=== PATIENT | female | born 1955 | race Caucasian/White ===

== ENCOUNTER 2017-12-08 11:17 | Emergency (ER) | payer OTHER ==
[2017-12-08 11:25] VITALS: BP 137/88; PULSE 88; TEMP 97.8; BMI 26.5
[2017-12-08] MEDS ORDERED: predniSONE 20 MG TABLET (UD) PO ONE (11:32)
[2017-12-08] MEDS ORDERED: predniSONE 20 MG TABLET (UD) ONE (11:33)
[2017-12-08] MEDS ORDERED: ALBUTEROL SO4 2.5/IPRATROPIUM 0.5 INH SOL 3 ML VIAL.NEB. NEB ONE ×2 (11:33→12:32)
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
[2017-12-08] MEDS: ALBUTEROL SO4 2.5/IPRATROPIUM 0.5 INH SOL 3 ML VIAL.NEB. NEB SCH ×2 (11:50→12:34)
[2017-12-08 12:13] LABS: BASO % 1.4 % (0-2.0); HEMATOCRIT 37.3 % (32.4-45.2); HEMOGLOBIN 12.8 GM/dl (10.7-15.3); LYMPH % 35.3 % (8-40); MCH 33.2 pg (25.7-33.7); MCHC 34.4 g/dl (32.0-36.0); MEAN CELL VOLUME 96.5 fl (80-96); MEAN PLT VOLUME 8.1 fl (7.5-11.1); MONO % 9.1 % (3.8-10.2); NEUT % 48.2 % (42.8-82.8); PLATELET COUNT 420 K/MM3 (134-434); RBC 3.86 M/mm3 (3.60-5.2); RDW 12.8 % (11.6-15.6); WHITE BLOOD COUNT 8.1 K/mm3 (4.0-10.8)
[2017-12-08] MEDS ORDERED: LORazepam 2 MG/ML SDV VIAL ONE (12:14)
[2017-12-08 12:32] LABS: ALBUMIN 3.6 g/dl (3.5-5.0); ALK PHOS 167 U/L (32-92); ANION GAP 11 (8-16); BLOOD UREA NITROGEN 12 mg/dl (7-18); CALCIUM 9.1 mg/dl (8.4-10.2); CHLORIDE 102 mmol/L (98-107); CO2 23 mmol/L (22-28); GLUCOSE,RANDOM 96 mg/dl (74-106); POTASSIUM 3.4 mmol/L (3.5-5.1); SGOT/AST 36 U/L (10-42); SGPT/ALT 28 U/L (10-40); SODIUM 136 mmol/L (136-145)
[2017-12-08 12:58] LABS: BILIRUBIN,TOTAL < 0.5 mg/dl (0.2-1.0); CREATININE < 0.8 mg/dl (0.6-1.3)
[2017-12-08] MEDS ORDERED: AZITHROMYCIN 500 MG TABLET PO ONE (13:17)
[2017-12-08] MEDS ORDERED: AZITHROMYCIN 250 MG TABLET ONE (13:43)
--- NOTE | 2017-12-08 17:29 | EKG ---
Test Reason : Blood Pressure : / mmHG Vent. Rate : 076 BPM Atrial Rate : 076 BPM P-R Int : 166 ms QRS Dur : 086 ms QT Int : 380 ms P-R-T Axes : 061 057 051 degrees QTc Int : 427 ms NORMAL SINUS RHYTHM NORMAL ECG NO PREVIOUS ECGS AVAILABLE Confirmed by AYDEN FOSTER MD ([id number]) on 12/08/2017 5:28:49 PM Referred By: ELIZABETH KULKARNI Confirmed By:AYDEN FOSTER MD
== END 2017-12-08 14:00 | disposition home or self-care (01) ==
LOC: FER 11:17 → EDBD 11:17 → FER 14:00
PROC: 3E0F7GC Introduction of Other Therapeutic Substance into Respiratory Tract, Via Natural or Artificial Opening (ICD-10-PCS; principal; 2017-12-08)
PROC: 3E033NZ Introduction of Analgesics, Hypnotics, Sedatives into Peripheral Vein, Percutaneous Approach (ICD-10-PCS; 2017-12-08)
DX: J44.9 Chronic obstructive pulmonary disease, unspecified (principal); I10 Essential (primary) hypertension; E03.9 Hypothyroidism, unspecified; Z87.891 Personal history of nicotine dependence
CPT/HCPCS: 36415; 71046-TC-FY; 80053; 82550; 83880; 84484; 85025; 93005; 99284-25

== ENCOUNTER 2018-10-10 10:27 | Emergency (ER) | payer OTHER ==
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
[2018-10-10 10:41] VITALS: BP 119/80; PULSE 85; TEMP 98.2; BMI 24.8
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
== END 2018-10-10 12:03 | disposition home or self-care (01) ==
LOC: FER 10:27
CPT/HCPCS: 73562-TC-LT-FY; 73590-TC-LT-FY; 73610-TC-LT-FY; 73630-TC-LT; 99281-25

== ENCOUNTER 2018-11-05 08:29 | Observation (INO) | payer OTHER ==
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
[2018-11-05] MEDS ORDERED: SODIUM CHLORIDE 1,000 ML IV SCH (09:00)
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
[2018-11-05 09:57] LABS: BASO % 0.7 % (0-2.0); HEMATOCRIT 40.9 % (32.4-45.2); HEMOGLOBIN 13.5 GM/dl (10.7-15.3); LYMPH % 47.4 % (8-40); MCH 32.6 pg (25.7-33.7); MEAN CELL VOLUME 98.7 fl (80-96); MEAN PLT VOLUME 8.4 fl (7.5-11.1); MONO % 12.8 % (3.8-10.2); NEUT % 39.1 % (42.8-82.8); PLATELET COUNT 299 K/MM3 (134-434); RBC 4.14 M/mm3 (3.60-5.2); RDW 13.3 % (11.6-15.6); WHITE BLOOD COUNT 3.8 K/mm3 (4.0-10.8)
[2018-11-05 10:04] LABS: ALBUMIN 4.1 g/dl (3.4-5.0); ALK PHOS 98 U/L (45-117); ANION GAP 7 MMOL/L (8-16); BILIRUBIN,TOTAL 0.4 mg/dl (0.2-1); BLOOD UREA NITROGEN 19 mg/dl (7-18); CHLORIDE 104 mmol/L (98-107); CHOLESTEROL 181 mg/dl (50-200); CO2 23 mmol/L (21-32); CREATININE 0.4 mg/dl (0.55-1.3); GLUCOSE,RANDOM 86 mg/dl (74-106); HDL CHOLESTEROL 88 mg/dl (40-60); POTASSIUM 4.1 mmol/L (3.5-5.1); SGOT/AST 32 U/L (15-37); SGPT/ALT 28 U/L (13-61); SODIUM 134 mmol/L (136-145); TOT PROT 7.1 g/dl (6.4-8.2); TRIGLYCERIDES 252 mg/dl (0-150)
[2018-11-05 10:13] LABS: ACTIVATED PTT 24.9 SECONDS (25.2-36.5)
[2018-11-05 10:18] LABS: INR 1.13 (0.82-1.09); PROTHROMBIN TIME (PATIENT) 12.6 SEC (10.2-13.0)
[2018-11-05 10:50] LABS: PH,URINE 5.5 (4.5-8); URINE APPEARANCE Clear; URINE BILIRUBIN Negative (NEGATIVE); URINE COLOR Yellow; URINE GLUCOSE (UA) Negative (NEGATIVE); URINE KETONE Negative (NEGATIVE); URINE LEUK ESTERASE Negative (NEGATIVE); URINE NITRITE Negative (NEGATIVE); URINE PROTEIN Negative (NEGATIVE); URINE UROBILINOGEN 0.2 (0.2-1.0)
--- NOTE | 2018-11-05 11:03 | PDOC ---
Attending Attestation - Resident Resident Name: Oxana Lloyd - HPI HPI: 11/05/18 13:16 Pt presents to the ED complaining of the acute onset of L arm and leg weakness this morning. Patient reports that she awoke in her usual state of health and that she developed numbness of her left hand that progressed to numbness of her left arm and leg. The patient was able to walk up the stairs to get her and to walk with him down the stairs and out to the car. She reports feeling confused and feeling like her speech is not normal. She has a history of seizure disorder, for which she takes carbemazepine and reports compliance with her meds. - Physicial Exam PE: 11/06/18 18:41 agree with resident exam. On initial exam, patient had weakness of her L arm and leg, slurred speech and mild confusion. Her neuro exam gradually returned to normal during her stay in the ED. CV: RRR no M/R/g Pulm: CTA b/l Abd: soft, non tender non distended. Ext: no edema - Medical Decision Making 11/06/18 18:46 Pt presents to the ED complaining of L arm and leg weakness, slurred speech and mild confusion. CT negative. TPA not given because symptoms were actively improving. Symptoms have now completely resolved. Concern for TIA. Will admit for observation and MRI.
[2018-11-05] MEDS ORDERED: ASPIRIN 81 MG CHEWABLE TABLETS PO ONE (11:05)
[2018-11-05] MEDS ORDERED: ATORVASTATIN CA 80 MG TABLET (FP) PO ONE (11:05)
[2018-11-05] MEDS ORDERED: ASPIRIN 81 MG CHEWABLE TABLETS ONE (11:06)
[2018-11-05] MEDS ORDERED: ATORVASTATIN CA 80 MG TABLET (FP) ONE (11:06)
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
[2018-11-05] MEDS ORDERED: ALBUTEROL SO4 8 GM HFA INHALER IH PRN (12:59)
[2018-11-05] MEDS ORDERED: ALBUTEROL SO4 0.083% IH SOL 2.5 MG/3 ML VIAL.NEB. NEB PRN (12:59)
[2018-11-05 13:58] VITALS: BP 124/77; PULSE 85; TEMP 98.2
[2018-11-05 14:18] VITALS: BMI 26.4
--- NOTE | 2018-11-05 16:40 | DS ---
Physical Exam: SUBJECTIVE: Patient seen and examined OBJECTIVE: Vital Signs Period Temp Pulse Resp BP Sys/Griffiths Pulse Ox Last 24 Hr 98 F-98.2 F 74-87 16-18 96-138/53-87 95-99 PHYSICAL EXAM GENERAL: The patient is awake, alert, and fully oriented, in no acute distress. HEAD: Normal with no signs of trauma. EYES: PERRL, extraocular movements intact, sclera anicteric, conjunctiva clear. ENT: Ears normal, nares patent, oropharynx clear without exudates, moist mucous membranes. NECK: Trachea midline, full range of motion, supple. LUNGS: Breath sounds equal, clear to auscultation bilaterally, no wheezes, no crackles, no accessory muscle use. HEART: Regular rate and rhythm, S1, S2 without murmur, rub or gallop. ABDOMEN: Soft, nontender, nondistended, normoactive bowel sounds, no guarding, no rebound, no hepatosplenomegaly, no masses. EXTREMITIES: 2+ pulses, warm, well-perfused, no edema. NEUROLOGICAL: Cranial nerves II through XII grossly intact. Normal speech, gait not observed. PSYCH: Normal mood, normal affect. SKIN: Warm, dry, normal turgor, no rashes or lesions noted. LABS Laboratory Results - last 24 hr 11/05/18 11/05/18 11/05/18 08:58 08:58 08:58 WBC 3.8 L RBC 4.14 Hgb 13.5 Hct 40.9 MCV 98.7 H MCH 32.6 MCHC 33.0 RDW 13.3 Plt Count 299 MPV 8.4 Absolute Neuts (auto) 1.5 Neutrophils % 39.1 L Lymphocytes % 47.4 H Monocytes % 12.8 H Eosinophils % 0.0 Basophils % 0.7 PT with INR 12.6 INR 1.13 PTT (Actin FS) 24.9 L Sodium 134 L Potassium 4.1 Chloride 104 Carbon Dioxide 23 Anion Gap 7 L BUN 19 H Creatinine 0.4 L Creat Clearance w eGFR > 60 POC Glucometer Random Glucose 86 Calcium 9.0 Total Bilirubin 0.4 AST 32 ALT 28 Alkaline Phosphatase 98 Creatine Kinase 98 Troponin I Total Protein 7.1 Albumin 4.1 Triglycerides 252 H Cholesterol 181 Total LDL Cholesterol 42 HDL Cholesterol 88 H TSH 0.74 Urine Color Urine Appearance Urine pH Ur Specific [place] Urine Protein Urine Glucose (UA) Urine Ketones Urine Blood Urine Nitrite Urine Bilirubin Urine Urobilinogen Ur Leukocyte Esterase Carbamazepine Blood Type Antibody Screen 11/05/18 11/05/18 11/05/18 08:58 08:58 09:12 WBC RBC Hgb Hct MCV MCH MCHC RDW Plt Count MPV Absolute Neuts (auto) Neutrophils % Lymphocytes % Monocytes % Eosinophils % Basophils % PT with INR INR PTT (Actin FS) Sodium Potassium Chloride Carbon Dioxide Anion Gap BUN Creatinine Creat Clearance w eGFR POC Glucometer 91 Random Glucose Calcium Total Bilirubin AST ALT Alkaline Phosphatase Creatine Kinase Troponin I < 0.03 Total Protein Albumin Triglycerides Cholesterol Total LDL Cholesterol HDL Cholesterol TSH Urine Color Urine Appearance Urine pH Ur Specific [place] Urine Protein Urine Glucose (UA) Urine Ketones Urine Blood Urine Nitrite Urine Bilirubin Urine Urobilinogen Ur Leukocyte Esterase Carbamazepine Blood Type O POSITIVE Antibody Screen Negative 11/05/18 11/05/18 09:18 10:38 WBC RBC Hgb Hct MCV MCH MCHC RDW Plt Count MPV Absolute Neuts (auto) Neutrophils % Lymphocytes % Monocytes % Eosinophils % Basophils % PT with INR INR PTT (Actin FS) Sodium Potassium Chloride Carbon Dioxide Anion Gap BUN Creatinine Creat Clearance w eGFR POC Glucometer Random Glucose Calcium Total Bilirubin AST ALT Alkaline Phosphatase Creatine Kinase Troponin I Total Protein Albumin Triglycerides Cholesterol Total LDL Cholesterol HDL Cholesterol TSH Urine Color Yellow Urine Appearance Clear Urine pH 5.5 Ur Specific [place] 1.015 Urine Protein Negative Urine Glucose (UA) Negative Urine Ketones Negative Urine Blood Negative Urine Nitrite Negative Urine Bilirubin Negative Urine Urobilinogen 0.2 Ur Leukocyte Esterase Negative Carbamazepine 8.3 Blood Type Antibody Screen HOSPITAL COURSE: Date of Admission:11/05/18 Date of Discharge: 11/05/18 Minutes to complete discharge: 35 Discharge Summary Reason For Visit: NUMBNESS ON LEFT SIDE Condition: Stable - Instructions Disposition: HOME - Home Medications Comprehensive Discharge Medication List: Ambulatory Orders Mirtazapine [Remeron -] 15 mg PO BID 08/05/12 Paroxetine HCl [Paxil -] 20 mg PO HS 08/05/12 Albuterol 0.083% Nebulizer Jackeline [Ventolin 0.083% Nebulizer Soln -] 1 neb NEB QID PRN 12/08/17 Albuterol Sulfate [Proair Hfa] 8.5 gm IH QID PRN 12/08/17 Levothyroxine [Synthroid -] 25 mcg PO HS 12/08/17 Primidone 2 tab PO BID 12/08/17 Amlodipine Besylate 2.5 mg PO DAILY 10/10/18 Budesonide [Pulmicort 0.5 mg Nebulizer -] 1 neb NEB BID 11/05/18 Budesonide/Formeterol Fumarate [SYMBICORT 80/4.5mcg -] 2 puff PO DAILY 11/05/18 Carbamazepine Xr [Tegretol XR -] 400 mg PO BID 11/05/18 Paroxetine HCl 10 mg PO AM 11/05/18 This patient is new to me today: Yes Date on this admission: 11/05/18 Emergency Visit: Yes ED Registration Date: 11/05/18 Care time: The patient presented to the Emergency Department on the above date and was hospitalized for further evaluation of their emergent condition. Critical Care patient: No - Discharge Referral Referred to [facility] Med P.C.: No
[2018-11-05] MEDS ORDERED: HEPARIN NA (PORCINE) 5,000 UNITS/ML 1ML VIAL SQ SCH (18:00)
[2018-11-05] MEDS ORDERED: carBAMazepine XR 400 MG TAB.ER.12H PO SCH (22:00)
[2018-11-05] MEDS ORDERED: MIRTAZAPINE 15 MG TABLET (FP) PO SCH (22:00)
[2018-11-05] MEDS ORDERED: PARoxetine HCL 20 MG TABLET (FP) PO SCH (22:00)
[2018-11-05] MEDS ORDERED: PRIMIDONE 50 MG TABLET PO SCH (22:00)
[2018-11-05] MEDS ORDERED: LEVOTHYROXINE NA 25 MCG TABLET (FP) PO SCH (22:00)
[2018-11-05] MEDS ORDERED: BUDESONIDE 0.5 MG/2 ML INH SUSP VIAL NEB SCH (22:00)
[2018-11-06] MEDS ORDERED: PARoxetine HCL 10 MG TABLET (FP) PO SCH (07:00)
[2018-11-06] MEDS ORDERED: amLODIPine BESYLATE 2.5 MG TABLET (FP) PO SCH (10:00)
[2018-11-06] MEDS ORDERED: ASPIRIN COATED 81 MG TABLET.EC PO SCH (10:00)
[2018-11-06] MEDS ORDERED: BUDESONIDE/FORMETEROL FUMARATE 80/4.5 mcg INHALER IH SCH (10:00)
--- NOTE | 2018-11-06 10:13 | EKG ---
Test Reason : Blood Pressure : / mmHG Vent. Rate : 072 BPM Atrial Rate : 072 BPM P-R Int : 168 ms QRS Dur : 086 ms QT Int : 388 ms P-R-T Axes : 070 060 055 degrees QTc Int : 424 ms NORMAL SINUS RHYTHM NORMAL ECG WHEN COMPARED WITH ECG OF 08-DEC-2017 11:53, NO SIGNIFICANT CHANGE WAS FOUND Confirmed by TIFFANY MITCHELL MD ([id number]) on 11/06/2018 10:13:18 AM Referred By: CLAUDIA PAINTER Confirmed By:TIFFANY MITCHELL MD
[2018-11-06] MEDS ORDERED: ATORVASTATIN CA 40 MG TABLET (FP) PO SCH (22:00)
== END 2018-11-05 16:08 | disposition home or self-care (01) ==
LOC: SUPCPDRO 08:29 → FER 08:29 → FM/S 10:41 → UNDOADMOB 10:41 → INTOOBSV 10:41 → FM/S 12:26 → UNDOADMIN 12:41
PROVIDERS: ATTEND Nurse Practitioner Acute Care
PROC: 3E0337Z Introduction of Electrolytic and Water Balance Substance into Peripheral Vein, Percutaneous Approach (ICD-10-PCS; principal; 2018-11-05)
DX: R20.0 Anesthesia of skin (principal); R53.1 Weakness; D72.819 Decreased white blood cell count, unspecified; E86.0 Dehydration; E78.1 Pure hyperglyceridemia; Z88.0 Allergy status to penicillin; I10 Essential (primary) hypertension; G40.909 Epilepsy, unspecified, not intractable, without status epilepticus; J45.909 Unspecified asthma, uncomplicated; E03.9 Hypothyroidism, unspecified; F41.9 Anxiety disorder, unspecified; F32.9 Major depressive disorder, single episode, unspecified
CPT/HCPCS: 36415; 70450-TC; 70551-TC; 71045-TC-FY; 80053; 80156; 81003; 82465; 82550; 82962; 83718; 83721; 84443; 84478; 84484; 85025; 85610; 85730; 86850; 86900; 86901; 93005; 99285-25; G0378; J7030

== ENCOUNTER 2020-11-28 10:48 | Emergency (ER) | payer OTHER ==
[2020-11-28 11:16] VITALS: BMI 25.2
[2020-11-28] MEDS ORDERED: LIDOCAINE HCL 2% (20ML MULTI-DOSE VIAL) ONE (11:27)
[2020-11-28] MEDS ORDERED: LIDOCAINE HCL 2% (50ML VIAL) INF ONE (11:27)
[2020-11-28] MEDS ORDERED: DIPHTH,PERTUSS(ACELL),TET 0.5 ML DISP.SYRIN IM ONE ×2 (11:27→12:13)
[2020-11-28] MEDS ORDERED: ACETAMINOPHEN 325 MG TABLET (FP) PO ONE ×2 (13:41→18:04)
[2020-11-28] MEDS ORDERED: ACETAMINOPHEN 325 MG TABLET (FP) ONE ×2 (13:50→18:38)
[2020-11-28] MEDS ORDERED: CLINDAMYCIN 600MG PREMIX IVPB 600 MG/50 ML BAG IVPB ONE (15:35)
[2020-11-28] MEDS ORDERED: CLINDAMYCIN PHOSPHATE 600 MG/4 ML VIAL ONE (15:41)
[2020-11-28] MEDS ORDERED: IBUPROFEN 600 MG TABLET (FP) PO ONE ×2 (18:23→18:38)
[2020-11-28 19:02] VITALS: BP 173/108; PULSE 69; TEMP 98
== END 2020-11-28 19:05 | disposition home or self-care (01) ==
LOC: FER 10:48
PROC: 3E03329 Introduction of Other Anti-infective into Peripheral Vein, Percutaneous Approach (ICD-10-PCS; principal; 2020-11-28)
PROC: 3E0234Z Introduction of Serum, Toxoid and Vaccine into Muscle, Percutaneous Approach (ICD-10-PCS; 2020-11-28)
DX: S62.634B Displaced fracture of distal phalanx of right ring finger, initial encounter for open fracture (principal); M79.672 Pain in left foot
CPT/HCPCS: 73130-TC-LT-FY; 73130-TC-RT-FY; 73630-TC-LT; 90715; 93971-TC; 99285-25

== ENCOUNTER 2022-06-28 11:27 | Emergency (ER) | payer OTHER ==
[2022-06-28 11:32] VITALS: TEMP 98.6; BMI 26.9
[2022-06-28] MEDS ORDERED: ALBUTEROL SO4 2.5/IPRATROPIUM 0.5 INH SOL 3 ML VIAL.NEB. NEB ONE ×2 (12:29→12:35)
[2022-06-28] MEDS ORDERED: predniSONE 20 MG TABLET (UD) ONE (12:35)
[2022-06-28] MEDS ORDERED: predniSONE 10 MG TABLET (UD) ONE (12:35)
[2022-06-28] MEDS ORDERED: predniSONE 20 MG TABLET (UD) PO ONE (12:41)
[2022-06-28 13:29] VITALS: BP 153/75; PULSE 83; RESP 18
[2022-06-29] MEDS ORDERED: predniSONE 20 MG TABLET (UD) PO ONE (12:30)
== END 2022-06-28 13:10 | disposition home or self-care (01) ==
LOC: FER 11:27
PROC: 3E0F7GC Introduction of Other Therapeutic Substance into Respiratory Tract, Via Natural or Artificial Opening (ICD-10-PCS; principal; 2022-06-28)
DX: R05.1 Acute cough (principal)
CPT/HCPCS: 0241U-QW; 71046-TC-FY; 93005; 99284-25

== ENCOUNTER 2024-08-06 09:46 | Inpatient (IN) | payer OTHER, MEDICARE ==
[2024-08-06] MEDS ORDERED: ACETAMINOPHEN INJECTION 100 ML ONE (10:17)
[2024-08-06] MEDS: ACETAMINOPHEN 1000 MG/100 ML BAG IVPB ONE (10:43)
[2024-08-06 10:57] LABS: INR 0.92 (0.83-1.09); PROTHROMBIN TIME (PATIENT) 10.5 SEC (9.7-13.0)
[2024-08-06 10:59] LABS: ACTIVATED PTT 31.4 SECONDS (25.2-36.5)
[2024-08-06 11:05] LABS: HEMATOCRIT 36.9 % (32.4-45.2); HEMOGLOBIN 12.6 G/dL (10.7-15.3); MCH 32.6 pg (25.7-33.7); MCHC 34.1 g/dl (32.0-36.0); MEAN CELL VOLUME 95.9 fl (80-96); MEAN PLT VOLUME 9.4 fl (7.5-11.1); PLATELET COUNT 54.3 10^3/uL (134-434); RBC 3.85 10^6/uL (3.60-5.2); WHITE BLOOD COUNT 6.5 10^3/uL (4.0-10.8)
[2024-08-06 11:11] LABS: ALBUMIN 4.4 g/dl (3.4-5.0); BILIRUBIN,TOTAL 0.4 mg/dl (0.2-1); CREATININE 0.5 mg/dl (0.6-1.3); POTASSIUM 3.4 mmol/L (3.5-5.1); TOT PROT 6.6 g/dl (6.4-8.2)
[2024-08-06] MEDS: morphine CARPU-JECT 2 MG/1 ML DISP.SYRIN IVPUSH ONE ×2 (11:40→12:59)
[2024-08-06] MEDS: SODIUM CHLORIDE 0.9% 1000 ML INFUS.BAG IV ONE (13:00)
[2024-08-06 14:31] LABS: HIV INTERPRETATION NEGATIVE (NEGATIVE)
[2024-08-06] MEDS ORDERED: KETOROLAC TROMETHAMINE 15 MG/ML VIAL ONE (14:36)
[2024-08-06] MEDS: KETOROLAC TROMETHAMINE 15 MG/ML VIAL IVPUSH ONE ×2 (14:46→20:29)
[2024-08-06] MEDS ORDERED: POTASSIUM CHLORIDE TABS 20 MEQ TABLET.ER (FP) PO ONE (14:58)
[2024-08-06] MEDS: POTASSIUM CHLORIDE TABS 20 MEQ TABLET.ER (FP) PO ONE (15:01)
[2024-08-06 15:58] VITALS: BMI 25.0
[2024-08-06 16:04] LABS: CHOLESTEROL 229 mg/dL (50-200); HDL CHOLESTEROL 97 mg/dL (40-60); LDL CHOLESTEROL (ONLY DFH) 118 mg/dL (5-100)
[2024-08-06] MEDS: traMADol HCL 50 MG TABLET PO PRN (16:08)
[2024-08-06 16:56] LABS: CALCIUM 9.1 mg/dl (8.5-10.1); CREATININE 0.5 mg/dl (0.6-1.3); POTASSIUM 4.5 mmol/L (3.5-5.1)
[2024-08-06] MEDS: ACETAMINOPHEN 1000 MG/100 ML BAG IVPB PRN (17:50)
[2024-08-06 18:56] LABS: COCAINE, UR NEGATIVE (NEGATIVE)
[2024-08-06 18:57] LABS: METHADONE, UR NEGATIVE (NEGATIVE); PHENCYCLIDINE,URINE NEGATIVE (NEGATIVE)
[2024-08-06 18:59] LABS: OPIATES, URI POSITIVE (NEGATIVE); URINE AMPHETAMINES NEGATIVE (NEGATIVE); URINE BARBITURATES POSITIVE (NEGATIVE); URINE BENZODIAZEPINES NEGATIVE (NEGATIVE)
[2024-08-06] MEDS: ALBUTEROL SO4 HFA INHALER IH PRN (21:31)
[2024-08-06] MEDS: MIRTAZAPINE 15 MG TABLET (FP) PO ONE (23:31)
[2024-08-06] MEDS: GABAPENTIN 300 MG CAPSULE PO ONE (23:32)
[2024-08-06] MEDS: carBAMazepine 200 MG TABLET PO ONE (23:40)
[2024-08-07] MEDS: KETOROLAC TROMETHAMINE 15 MG/ML VIAL IVPUSH ONE (02:28)
[2024-08-07 09:36] VITALS: RESP 18
[2024-08-07 09:48] LABS: BILIRUBIN,TOTAL 0.3 mg/dl (0.2-1); CALCIUM 8.8 mg/dl (8.5-10.1); CREATININE 0.5 mg/dl (0.6-1.3); POTASSIUM 3.9 mmol/L (3.5-5.1); TOT PROT 6.2 g/dl (6.4-8.2)
[2024-08-07] MEDS ORDERED: PARoxetine HCL 10 MG TABLET ONE (09:49)
[2024-08-07] MEDS: carBAMazepine 200 MG TABLET PO SCH (09:54)
[2024-08-07] MEDS: PRIMIDONE 50 MG TABLET PO SCH (09:55)
[2024-08-07] MEDS: PARoxetine HCL 20 MG TABLET PO SCH (09:55)
[2024-08-07] MEDS ORDERED: PRIMIDONE 50 MG TABLET PO SCH (10:00)
[2024-08-07 11:37] LABS: HEMATOCRIT 35.8 % (32.4-45.2); MCH 32.5 pg (25.7-33.7); MCHC 33.7 g/dl (32.0-36.0); MEAN CELL VOLUME 96.6 fl (80-96); RBC 3.71 M/mm3 (3.60-5.2); RDW 13.5 % (11.6-15.6); WHITE BLOOD COUNT 4.2 K/mm3 (4.0-10.0)
[2024-08-07 11:59] LABS: ANISOCYTOSIS 0; MACROCYTOSIS 0
[2024-08-07] MEDS: PARoxetine HCL 10 MG TABLET PO SCH (12:46)
[2024-08-07] MEDS: ENOXAPARIN NA (PORCINE) 40 MG/0.4 ML DISP.SYRIN SQ SCH (12:46)
[2024-08-07] MEDS: UMECLIDINIUM/VILANTEROL (ANORO) 62.5/25 MCG INHALER IH SCH (12:46)
[2024-08-07] MEDS: DEXTROSE 5%-WATER - 1,000 ML IV SCH (17:20)
[2024-08-07 17:54] LABS: CALCIUM 9.1 mg/dl (8.5-10.1); CREATININE 0.5 mg/dl (0.6-1.3); POTASSIUM 3.9 mmol/L (3.5-5.1)
[2024-08-07] MEDS: GABAPENTIN 300 MG CAPSULE PO SCH (22:23)
[2024-08-07] MEDS: MIRTAZAPINE 15 MG TABLET (FP) PO SCH (22:23)
[2024-08-08 08:48] LABS: HEMATOCRIT 37.9 % (32.4-45.2); HEMOGLOBIN 12.6 G/dL (10.7-15.3); MCH 32.5 pg (25.7-33.7); MCHC 33.1 g/dl (32.0-36.0); MEAN CELL VOLUME 98.2 fl (80-96); MEAN PLT VOLUME 9.6 fl (7.5-11.1); RBC 3.86 10^6/uL (3.60-5.2); WHITE BLOOD COUNT 6.8 10^3/uL (4.0-10.8)
[2024-08-08 09:49] LABS: ALBUMIN 4.2 g/dl (3.4-5.0); CALCIUM 9.1 mg/dl (8.5-10.1); CREATININE 0.5 mg/dl (0.6-1.3); MAGNESIUM 1.9 mg/dL (1.8-2.4); PHOSPHOROUS 3.9 (2.5-4.9); POTASSIUM 3.9 mmol/L (3.5-5.1); TOT PROT 6.5 g/dl (6.4-8.2)
[2024-08-08 10:04] VITALS: BP 127/82; PULSE 85; TEMP 98.4
[2024-08-08] MEDS ORDERED: ACETAMINOPHEN 500 MG TABLET (FP) PO PRN (13:12)
[2024-08-08 13:33] LABS: PLATELET ESTIMATE DECREASED
[2024-08-08 15:44] LABS: BILIRUBIN,TOTAL 0.3 mg/dL (0.2-1)
== END 2024-08-08 14:29 | disposition home or self-care (01) | DRG 641 ==
LOC: FER 09:46 → FM/S 12:57
PROVIDERS: ATTEND Internal Medicine
DX: E87.1 Hypo-osmolality and hyponatremia (principal); J44.9 Chronic obstructive pulmonary disease, unspecified; F32.A Depression, unspecified; F41.9 Anxiety disorder, unspecified; G40.909 Epilepsy, unspecified, not intractable, without status epilepticus; R10.32 Left lower quadrant pain; I10 Essential (primary) hypertension
CPT/HCPCS: 36415; 71046-TC-FY; 73502-TC-LT-FY; 74177-TC; 80048; 80053; 80061; 80307; 81003; 82436; 82533; 82570; 83036; 83735; 83880; 83930; 83935; 84100; 84300; 84439; 84443; 85025; 85027; 85610; 85730; 86803; 86850; 86900; 86901; 87086; 87389; 99285-25; J0131; Q9967